=== PATIENT | female | born 1985 | race Caucasian/White ===

== ENCOUNTER 2018-03-10 23:00 | Emergency (ER) | payer OTHER ==
[2018-03-10 23:17] VITALS: BP 129/73
[2018-03-10] MEDS ORDERED: CLINDAMYCIN 150 MG CAP PO ONE (23:39)
--- NOTE | 2018-03-10 23:43 | EDPHY ---
H & P Stated Complaint: redness and swelling to the left forearm started on Thursday Time Seen by Provider: 03/10/18 23:21 HPI/ROS: CHIEF COMPLAINT: Left arm redness HISTORY OF PRESENT ILLNESS: Patient is a 32-year-old female who comes to the emergency department complaining of an area of redness and induration to her left forearm. She states that she 1st noticed yesterday when she woke up. It has gradually enlarged since. It is not fluctuant. It is not draining. She denies any known insect bite. No IV drug abuse. She has not had fevers or chills. REVIEW OF SYSTEMS: Constitutional: denies: chills, fever, recent illness, recent injury EENTM: denies: blurred vision, double vision, nose congestion Respiratory: denies: cough, shortness of breath Cardiac: denies: chest pain, irregular heart rate, lightheadedness, palpitations Gastrointestinal/Abdominal: denies: abdominal pain, diarrhea, nausea, vomiting, blood streaked stools Genitourinary: denies: dysuria, frequency, hematuria, pain Musculoskeletal: denies: joint pain, muscle pain Skin: See HPI Neurological: denies: headache, numbness, paresthesia, tingling, dizziness, weakness Hematologic/Lymphatic: denies: blood clots, easy bleeding, easy bruising Immunologic/allergic: denies: HIV/AIDS, transplant EXAM: GENERAL: Well-appearing, well-nourished and in no acute distress. HEAD: Atraumatic, normocephalic. EYES: Pupils equal round and reactive to light, extraocular movements intact, sclera anicteric, conjunctiva are normal. ENT: TMs normal, nares patent, oropharynx clear without exudates. Moist mucous membranes. NECK: Normal range of motion, supple without lymphadenopathy or JVD. LUNGS: Breath sounds clear to auscultation bilaterally and equal. No wheezes rales or rhonchi. HEART: Regular rate and rhythm without murmurs, rubs or gallops. ABDOMEN: Soft, nontender, normoactive bowel sounds. No guarding, no rebound. No masses appreciated. BACK: No CVA tenderness, no spinal tenderness, step-offs or deformities EXTREMITIES: Normal range of motion, no pitting or edema. No clubbing or cyanosis. NEUROLOGICAL: Cranial nerves II through XII grossly intact. Normal speech, normal gait. 5/5 strength, normal movement in all extremities, normal sensation PSYCH: Normal mood, normal affect. SKIN: 3 x 3 cm circular area of mild erythema and induration to her left forearm on the dorsal aspect. No fluctuance. No drainage. Source: Patient Exam Limitations: No limitations - Personal History LMP (Females 10-55): IUD In Place Current Tetanus/Diphtheria Vaccine: Yes Current Tetanus Diphtheria and Acellular Pertussis (TDAP): Yes - Medical/Surgical History Hx Asthma: No Hx Chronic Respiratory Disease: No Hx Diabetes: No Hx Cardiac Disease: No Hx Renal Disease: No Hx Cirrhosis: No Hx Alcoholism: No Hx HIV/AIDS: No Hx Splenectomy or Spleen Trauma: No Other PMH: Cholecystectomy, tonsillectomy - Family History Significant Family History: No pertinent family hx - Social History Smoking Status: Never smoked Alcohol Use: None Constitutional: Initial Vital Signs Temperature (C) 36.9 C 03/10/18 23:03 Heart Rate 71 03/10/18 23:03 Respiratory Rate 16 03/10/18 23:03 Blood Pressure 129/73 H 03/10/18 23:03 O2 Sat (%) 99 03/10/18 23:03 O2 Delivery Mode Room Air Allergies/Adverse Reactions: No Known Allergies Allergy (Verified 03/10/18 23:06) Home Medications: Medication Instructions Recorded Dextroamphetamine/Amphetamine 0 mg PO 02/23/12 [ADDERALL 12.5 MG TABLET] Clindamycin HCl [Clindamycin] 300 mg PO QID #40 cap 03/10/18 Medical Decision Making ED Course/Re-evaluation: Patient has a small lesion to her left arm that could be consistent with insect bite or early abscess or cellulitis. I will start her on clindamycin. We discussed follow-up in 2 days for re-evaluation. She understands and agrees with this plan. Discussed indications for returning sooner. Differential Diagnosis: Partial list of the Differential diagnosis considered include but were not limited to; cellulitis, abscess, insect bite, inflammatory reaction, allergic reaction and although unlikely based on the history and physical exam, I also considered foreign body, contusion. I discussed these differential diagnoses and the plan with the patient as well as the usual and expected course. The patient understands that the diagnosis is provisional and that in medicine we are not always correct and that further workup is often warranted. Usual and customary warnings were given. All of the patient's questions were answered. The patient was instructed to return to the emergency department should the symptoms at all worsen or return, otherwise to followup with the physician as we discussed. - Data Points Medications Given: Discontinued Medications Clindamycin (Clindamycin) 300 mg PO EDNOW ONE PRN Reason: Protocol Stop: 03/10/18 23:40 Last Admin: 03/10/18 23:47 Dose: 300 mg Departure - Departure Disposition: Home, Routine, Self-Care Clinical Impression: Cellulitis Qualifiers: Site of cellulitis: extremity Site of cellulitis of extremity: upper extremity Laterality: left Qualified Code(s): L03.114 - Cellulitis of left upper limb Condition: Good Instructions: Cellulitis (ED) Referrals: NONE *PRIMARY CARE P,. [Primary Care Provider] - As per Instructions Tari Gupta MD [[facility] [place] Primary Care Provider] - As per Instructions Prescriptions: Clindamycin HCl [Clindamycin] 300 mg PO QID #40 cap
== END 2018-03-10 23:56 | disposition home or self-care (01) ==
DX: L03.114 Cellulitis of left upper limb (principal)